=== PATIENT | female | born 1985 | race Caucasian/White ===

== ENCOUNTER → 2018-04-14 16:03 | Outpatient (CLI) | payer BC, SELFPAY ==
[2018-04-14 17:37] LABS: hCG Titer Quant., Serum < 1 mIU/mL (<9 non-preg)
== END ==
PROVIDERS: Visit Provider Obstetrics & Gynecology
DX: O20.0 Threatened abortion (principal)
CPT/HCPCS: 36415; 84702

== ENCOUNTER → 2018-12-27 12:03 | Outpatient (CLI) | payer BC, SELFPAY ==
[2018-12-21 14:41] VITALS: BMI 32.1
[2018-12-23 09:48] VITALS: BMI 31.8
--- NOTE | 2018-12-27 12:09 | US_ITS ---
STUDY: ULTRASOUND OF THE FEMALE PELVIS - COMPLETE REASON FOR EXAM: Female, 33 years old. Irregular menses. LMP: 12/14/2018 TECHNIQUE: Transabdominal and Transvaginal TECHNICAL QUALITY: Adequate. COMPARISON: None. FINDINGS: The uterus is anteverted and is in a midline position. The uterus measures 7.6 x 4.9 x 4.2 cm. Normal uterine cervix. The endometrium measures 7.4 mm in thickness, and is hyperechoic. There is no demonstrated endometrial mass. There is no demonstrated myometrial mass. I.U.D. - The patient does not have an I.U.D. The right ovary is visualized. The right ovary measures 2.1 x 2.3 x 3.0 cm. There is no right ovarian cyst or ovarian mass. There is no visualized right adnexal mass or complex lesion. There is normal arterial and normal venous vascularity. The left ovary is visualized. The left ovary measures 3.2 x 2.5 x 2.2 cm. There is no left ovarian cyst or ovarian mass. There is no visualized left adnexal mass or complex lesion. There is normal arterial and normal venous vascularity. There is no fluid in the cul-de-sac. The pre void volume of the bladder was 486 ml. US/Transvaginal Non- IMPRESSION: Normal female pelvis. Electronically Signed: Noe Muñoz MD at 23:49 EST , Service support ,
--- NOTE | 2018-12-27 12:09 | US_ITS ---
STUDY: ULTRASOUND OF THE FEMALE PELVIS - COMPLETE REASON FOR EXAM: Female, 33 years old. Irregular menses. LMP: 12/14/2018 TECHNIQUE: Transabdominal and Transvaginal TECHNICAL QUALITY: Adequate. COMPARISON: None. FINDINGS: The uterus is anteverted and is in a midline position. The uterus measures 7.6 x 4.9 x 4.2 cm. Normal uterine cervix. The endometrium measures 7.4 mm in thickness, and is hyperechoic. There is no demonstrated endometrial mass. There is no demonstrated myometrial mass. I.U.D. - The patient does not have an I.U.D. The right ovary is visualized. The right ovary measures 2.1 x 2.3 x 3.0 cm. There is no right ovarian cyst or ovarian mass. There is no visualized right adnexal mass or complex lesion. There is normal arterial and normal venous vascularity. The left ovary is visualized. The left ovary measures 3.2 x 2.5 x 2.2 cm. There is no left ovarian cyst or ovarian mass. There is no visualized left adnexal mass or complex lesion. There is normal arterial and normal venous vascularity. There is no fluid in the cul-de-sac. The pre void volume of the bladder was 486 ml. US/Pelvic (Non ) IMPRESSION: Normal female pelvis. Electronically Signed: Noe Muñoz MD at 23:49 EST , Service support ,
== END ==
PROVIDERS: Family Provider Internal Medicine; PCP Internal Medicine; Referring Provider Nurse Practitioner Women's Health; Visit Provider Nurse Practitioner Women's Health
DX: N92.6 Irregular menstruation, unspecified (principal)
CPT/HCPCS: 76830; 76856; 93976

== ENCOUNTER → 2018-12-29 07:50 | Outpatient (CLI) | payer BC, SELFPAY ==
[2018-12-23 09:48] VITALS: BMI 31.8
--- NOTE | 2018-12-29 08:18 | EKG12_ITS ---
Test Reason : CP Blood Pressure : / mmHG Vent. Rate : 079 BPM Atrial Rate : 079 BPM P-R Int : 166 ms QRS Dur : 074 ms QT Int : 352 ms P-R-T Axes : 027 053 046 degrees QTc Int : 403 ms Normal sinus rhythm Normal ECG Confirmed by CARMEL MCKEON MD ([id number]), metropolitan editor JARVIS DURON ([id number]) on 12/30/2018 8:14:37 AM Referred By: Mark Caldwell Confirmed By:CARMEL MCKEON MD
[2018-12-29 09:12] LABS: Hematocrit 42.8 % (37-47); Hemoglobin 13.6 g/dl (12.0-15.0); Mean Corp Hgb Conc 31.8 g/gl (32-36); Mean Corpuscular Hgb 28.7 pg (27.0-32.0); Mean Corpuscular Volume 90.3 fL (81-99); Mean Platelet Vol. 9.9 fl (6.2-12.0); Platelet Count 250 K/mm3 (150-450); RBC Distribution Width SD 42.7 fl (35.1-43.9); Red Blood Count 4.74 M/mm3 (4.2-5.4)
[2018-12-29 09:13] LABS: Scan Indicated on CBC? Y/N NO
[2018-12-29 09:47] LABS: BUN 10 mg/dL (7-18); Creatinine, Serum 0.69 mg/dL (0.55-1.02); EST Glomerular Filtration Rate 103 mL/min (>60); Glucose 87 mg/dL (74-106)
[2018-12-29 09:48] LABS: ALB/GLOB Ratio 1.1 RATIO (0.9-2.4); AST(SGOT) 16 U/L (15-37); Alanine Aminotransfer ALT/SGPT 26 U/L (13-56); Albumin, Serum 3.9 g/dL (3.2-5.0); Alkaline Phosphatase 78 U/L (45-117); Anion Gap 8 (5-15); BUN/Creat Ratio 14.4 RATIO (10-20); Calcium,Total 8.7 mg/dL (8.5-10.1); Chloride 110 mmol/L (98-107); Cholesterol 156 mg/dL (200); Est Glom Filt Rate - Afr Amer 124 mL/min (>60); Globulin 3.7 g/dL (2.2-4.2); High Density Lipoprotein 38 mg/dL; Potassium 4.1 mmol/L (3.5-5.1); Protein, Total 7.6 g/dL (6.4-8.2); Sodium Level 141 mmol/L (136-145); Thyroid Stim Hormone (TSH) 0.87 uIU/mL (0.358-3.74); Triglycerides 185 mg/dL; Very Low Density Lipoprotein 37 mg/dL (5-40)
== END ==
PROVIDERS: Family Provider Internal Medicine; PCP Internal Medicine; Referring Provider Nurse Practitioner Family; Visit Provider Nurse Practitioner Family
DX: R07.9 Chest pain, unspecified (principal); R03.0 Elevated blood-pressure reading, without diagnosis of hypertension; E66.9 Obesity, unspecified
CPT/HCPCS: 36415; 80053; 80061; 84443; 85027; 93005

== ENCOUNTER 2018-12-31 22:20 | Emergency (ER) | payer BC, SELFPAY ==
[2018-12-23 09:48] VITALS: BMI 31.8
[2018-12-31 22:21] VITALS: BP 152/102; PULSE 107; RESP 18; TEMP 37.1; O2SAT 100; BMI 33.3
--- NOTE | 2018-12-31 22:29 | ED.RN ---
CALLED FOR EKG PER RN REQUEST, PULLED OLD EKGS FOR
--- NOTE | 2018-12-31 22:31 | EKG12_ITS ---
Test Reason : PALPITATIONS Blood Pressure : / mmHG Vent. Rate : 079 BPM Atrial Rate : 079 BPM P-R Int : 164 ms QRS Dur : 072 ms QT Int : 340 ms P-R-T Axes : 018 032 049 degrees QTc Int : 389 ms Normal sinus rhythm Normal ECG Confirmed by MIKE MIDDLETON, CARMEL ([id number]), electronic news gathering editor JARVIS DURON ([id number]) on 01/03/2019 10:18:29 AM Referred By: BECKY Confirmed By:CARMEL MCKEON MD
--- NOTE | 2018-12-31 22:50 | RAD_ITS ---
STUDY: X-RAY CHEST REASON FOR EXAM: Female, 33 years old. Palpitations and chest pain TECHNIQUE: PA and lateral views of the chest. COMPARISON: None. FINDINGS: development coordinator leads are present. The lungs are clear and expanded. There is no demonstrated pleural abnormality. Normal size heart. Normal mediastinum and jose. Normal visualized pulmonary arteries. Normal visualized aortic arch and descending thoracic aorta. Normal visualized thoracic spine. Normal visualized ribs, clavicles, and shoulders. There is no demonstrated abnormality of the visualized soft tissue structures of the upper abdomen. RAD/Chest PA and Lateral IMPRESSION: Normal x-ray examination of the chest. Electronically Signed: Arie Howard MD at 23:30 EST , Service support ,
[2018-12-31 22:57] LABS: Absolute Lymphocyte Count 3.92 X10^3/ul (0.83-4.51); Basophil# 0.04 X10^3/uL; Basophil% 0.5 % (0-1); Eosinophil# 0.26 X10^3/uL; Hematocrit 43.4 % (37-47); Hemoglobin 14.2 g/dl (12.0-15.0); Lymphocyte # 3.92 X10^3/ul (4.0); Lymphocyte % 45.7 % (19-41); Mean Corp Hgb Conc 32.7 g/gl (32-36); Mean Corpuscular Hgb 29.3 pg (27.0-32.0); Mean Corpuscular Volume 89.5 fL (81-99); Mean Platelet Vol. 9.7 fl (6.2-12.0); Monocyte# 0.32 X10^3/uL; Monocyte% 3.7 % (0-10); Neutrophil % 46.7 % (47-70); Platelet Count 272 K/mm3 (150-450); RBC Distribution Width SD 42.4 fl (35.1-43.9); Red Blood Count 4.85 M/mm3 (4.2-5.4); White Blood Count 8.6 K/mm3 (4.4-11.0)
[2018-12-31 22:58] LABS: POSITIVE COUNT NO; POSITIVE DIFFERENTIAL NO; POSITIVE MORPHOLOGY NO
[2018-12-31 23:06] LABS: D-Dimer Quantitative (DVT/PE) < 0.27 FEU/ug/m (0.27-0.49)
[2018-12-31 23:25] LABS: Anion Gap 9 (5-15); BUN 16 mg/dL (7-18); BUN/Creat Ratio 20.9 RATIO (10-20); Calcium,Total 9.3 mg/dL (8.5-10.1); Chloride 109 mmol/L (98-107); Creatinine, Serum 0.77 mg/dL (0.55-1.02); EST Glomerular Filtration Rate 92 mL/min (>60); Est Glom Filt Rate - Afr Amer 111 mL/min (>60); Estimated Creatinine Clearance 77.68 ml/min; Glucose 106 mg/dL (74-106); Potassium 3.7 mmol/L (3.5-5.1); Sodium Level 143 mmol/L (136-145); Thyroid Stim Hormone (TSH) 2.73 uIU/mL (0.358-3.74)
--- NOTE | 2018-12-31 23:40 | ED.VISSUMM ---
- ER Visit Summary Date of Service: 12/31/18 Chief Complaint: Palpitations History of Present Illness: The patient is a 33 F who presents with palpitations. It began tonight about an hour ago. It lasted 15-20 minutes. She states she felt like her heart was racing. She also states that she cannot catch her breath all the way. She complains of intermittent chest pain shortness of breath for about 2 months. The pain is shooting. It lasts just a second. No recent surgery hospitalization travel. No leg pain or edema. No history of DVT or pulmonary embolism. No known coagulopathies. No medical history such as diabetes hypertension hyperlipidemia. She is a non-smoker. Currently her symptoms have resolved and she does not have palpitations currently. Physical Examination: Heart rate 107 initial blood pressure 152/102 vitals otherwise normal Moist mucous membranes Heart regular rate and rhythm Lungs are clear Abdomen soft Alert Test Results: EKG shows sinus rhythm at a rate of 79. CBC BMP troponin all normal. TSH normal. D-dimer negative. Chest x-ray normal Emergency Department Course and Treatment: Workup as above normal. Patient was recently started on progesterone. Palpitations may be attributable to this. Patient advised to follow-up with her physicians. She understands to return for new or worsening symptoms. She was discharged. Treatment Plan: [] Disposition: Discharge Impression: Palpitations This note was generated with [employer] dictation software. It may contain incorrect words, spelling, and punctuation that were not noted in review of the chart prior to signing ED Disposition - Plan for ED Patient: Referrals: Nicole Sidhu MD [Primary Care Provider] -
--- NOTE | 2018-12-31 23:44 | ED.DEP ---
ED Disposition - Plan for ED Patient: Instructions: ED Palpitations Referrals: Nicole Sidhu MD [Primary Care Provider] -
[2018-12-31 23:53] VITALS: BP 143/86; PULSE 85; RESP 18; O2SAT 95
== END 2018-12-31 23:53 | disposition home or self-care (01) ==
LOC: ED 22:50
PROVIDERS: Emergency Provider Emergency Medicine; Family Provider Internal Medicine; PCP Internal Medicine
DX: R00.2 Palpitations (principal); Z79.899 Other long term (current) drug therapy
CPT/HCPCS: 71046; 80048; 84443; 84484; 85025; 85379; 93005; 99284

== ENCOUNTER → 2019-01-07 07:54 | Outpatient (CLI) | payer BC, SELFPAY ==
[2018-12-31 22:21] VITALS: BMI 33.3
[2019-01-07 10:46] LABS: Estradiol 23.6 pg/mL; Follicle Stimulating Hormone 4.5 mIU/mL; Prolactin 22.7 ng/mL; Thyroid Stim Hormone (TSH) 1.31 uIU/mL (0.358-3.74)
== END ==
PROVIDERS: Family Provider Internal Medicine; PCP Internal Medicine; Referring Provider Nurse Practitioner Women's Health; Visit Provider Nurse Practitioner Women's Health
DX: E28.2 Polycystic ovarian syndrome (principal)
CPT/HCPCS: 36415; 82670; 83001; 84146; 84443

== ENCOUNTER → 2019-01-24 16:01 | Outpatient (CLI) | payer BC, SELFPAY ==
[2018-12-31 22:21] VITALS: BMI 33.3
[2019-01-24 17:01] LABS: Progesterone Level 6.23 ng/mL (See Comment)
== END ==
PROVIDERS: Family Provider Internal Medicine; PCP Internal Medicine; Referring Provider Nurse Practitioner Women's Health; Visit Provider Nurse Practitioner Women's Health
DX: E28.2 Polycystic ovarian syndrome (principal)
CPT/HCPCS: 36415; 84144

== ENCOUNTER → 2019-05-17 | Outpatient (CLI) | payer BC, SELFPAY ==
[2019-05-17 13:27] VITALS: BMI 32.1
[2019-05-24 12:54] LABS: HPV APTIMA, High Risk Negative (Negative)
== END | disposition home or self-care (01) ==
LOC: LABSPEC 16:24
PROVIDERS: Family Provider Internal Medicine; PCP Internal Medicine; Referring Provider Obstetrics & Gynecology; Visit Provider Obstetrics & Gynecology
DX: O09.90 Supervision of high risk pregnancy, unspecified, unspecified trimester (principal); Z3A.00 Weeks of gestation of pregnancy not specified
CPT/HCPCS: 87086; 87088; 87624; 88175; G0145

== ENCOUNTER 2019-05-28 07:54 | Emergency (ER) | payer BC, SELFPAY ==
[2019-05-17 13:27] VITALS: BMI 32.1
[2019-05-28 07:55] VITALS: BP 147/95; PULSE 100; RESP 18; TEMP 36.4; O2SAT 98; BMI 31.1
[2019-05-28] MEDS: Acetaminophen 500 MG Tablet 1000 MG PO (08:19)
[2019-05-28 08:55] LABS: Color, Urine Yellow (Yellow); Glucose, Dipstick Normal (Normal); Leukocyte Esterase-Dipstick 500 /ul (Negative); Nitrite-Dipstick Negative (Negative); Occult Blood-Urine 250 /ul (Negative); Protein-Dipstick 30 mg/dl (Negative); Urine Bilirubin Dipstick Negative (Negative); Urine Clarity Sl. Cloudy (Clear); Urine Urobilinogen Normal (Normal)
--- NOTE | 2019-05-28 08:57 | ED.DCSUM_ITS ---
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 she is followed by [facility] indicates her current is uncomplicated she is had ultrasounds that showed 9 weeks IUP she is had no fever no cough no abdominal pain no vaginal bleeding or discharge, she has had a pain to the low lumbar back that began for unspecified reasons, she has no history of UTI kidney stones no trauma and again her is uncomplicated she is taking nothing for the pain she is concerned that this represents some type of miscarriage process and is asking that an ultrasound be done but has the above history Past Medical History - Allergies and Home Meds Allergies/Adverse Reactions: Allergies No Known Allergies Allergy (Verified 05/28/19 07:57) Primary Care Physician: Nicole Sidhu MD [Primary Care Provider] - Past Medical History: - Smoking Status: Never smoker Review of Systems ROS: - As above General: Denies: Chills, Fever, Sweats Eyes: Denies: Visual changes - bilaterally, Diplopia ENT: Denies: Rhinorrhea, Sore throat Cardiovascular: Denies: Chest pain, Palpitations Respiratory: Denies: Dyspnea, Cough, Dyspnea on exertion Gastrointestinal: Denies: Abdominal pain, Nausea, Vomiting, Diarrhea, Melena, Hematochezia Genitourinary: Denies: Dysuria, Hematuria, Frequency Musculoskeletal: Reports: Back pain. Denies: Extremity Pain Skin: Denies: Rash, Wounds Neurological: Denies: Headache, Weakness, Numbness Physical Exam Vital Signs/Narrative: Vital Signs Temp Pulse Resp BP Pulse Ox 05/28/19 07:55 97.6 F L 100 18 147/95 H 98 General: Well nourished, Well developed, No Acute Distress Head: Normocephalic, Atraumatic Eyes: Perrl, EOMI ENT: Moist mucous membranes, No rhinorrhea Neck: Supple, Nontender Cardiovascular: Regular rate, Regular rhythm, No murmurs Respiratory: No distress, CTA bilaterally, Chest nontender Abdomen: Soft, Nontender, Nondistended, Normal bowel sounds Back: Nontender, Normal Inspection, - - Patient complains of pain to the low lumbar back there is no lesions here there is very little discomfort to palpation she has full range of motion she is able to stand walk by difficulty no radiation to her lower extremities no other complaints Extremities: Nontender, No edema Skin: Normal color, No rash Neurological: Alert, Oriented x3, Cranial nerves II-XII grossly intact, Normal Strength, Normal Sensation Psychological: Normal affect, Normal Mood Diagnostic/Tx/Re-eval - Medical Decision Making I had a long conversation with the patient I explained that there is no indication at this point time of the exact etiology of the back pain, there is no indication this represents a miscarriage and further should miscarriage be the occult process causing the above the ultrasound would not help prevent her manage that condition and a vaginal probe ultrasound might actually exacerbate the situation, and at this stage her appropriate management is bed rest pelvic rest and follow-up with her [facility]PER[facility] team she agreed to provide urine sample and we will provide her Tylenol for the pain She is UA shows signs of UTI, see those reports, urine culture sent, she started on Keflex, I explained all of the above to her I explained to have her follow-up with her OBs in the day or 2 continue the Keflex Tylenol for pain I explained her that at this time the UTI is likely explanation for the low back pain she has again the ultrasound would not usually be helpful she is to have pelvic rest take the antibiotic follow-up with her obese tomorrow or the next day and return for change in symptoms she will have her OB check her urine culture result Final impression urinary tract infection about 9 weeks ED Disposition - Plan for ED Patient: Diagnosis: , UTI (urinary tract infection) during Instructions: Understanding Urinary Tract Infections (UTIs) Prescriptions: Cephalexin [Keflex] 500 mg PO 4X/DAY #30 cap Prescription Printed Referrals: Nicole Sidhu MD [Primary Care Provider] -
[2019-05-28 09:03] LABS: Bacteria 2+ /hpf (None Seen); Ketone-Dipstick 150 mg/dl (Negative); Mucous, Urine RARE /hpf (<or=2+); Red Blood Cells-Urine 5-10 SEEN /hpf (0-5); Squamous Epithelial Cells - UA 0-5 SEEN /hpf (5-10); White Blood Cells 5-10 SEEN /hpf (0-5)
[2019-05-28 09:44] VITALS: BP 117/76; PULSE 72; RESP 16
[2019-05-28] MEDS: Cephalexin 250 MG Capsule 500 MG PO (09:46)
== END 2019-05-28 09:47 | disposition home or self-care (01) ==
LOC: ED 08:42
PROVIDERS: Emergency Provider Emergency Medicine; Family Provider Internal Medicine; PCP Internal Medicine
DX: O23.41 Unspecified infection of urinary tract in pregnancy, first trimester (principal); Z3A.09 9 weeks gestation of pregnancy; O20.0 Threatened abortion
CPT/HCPCS: 76817; 81001; 84702; 87086; 87088; 99283

== ENCOUNTER 2019-05-28 13:25 | Emergency (ER) | payer BC, SELFPAY ==
[2019-05-28 07:55] VITALS: BMI 31.1
[2019-05-28 13:27] VITALS: BP 146/87; PULSE 81; RESP 18; TEMP 36.6; O2SAT 98; BMI 30.9
--- NOTE | 2019-05-28 13:39 | US_ITS ---
STUDY: FIRST TRIMESTER OBSTETRICAL ULTRASOUND REASON FOR EXAM: Female, 33 years old. Bleeding in early . LMP: 03/23/2019 TECHNIQUE: Transvaginal real-time exam with carl scale image documentation. TECHNICAL QUALITY: Adequate. PRIOR ULTRASOUND: None. FINDINGS: There is visualization of a single gestational sac in a normal intrauterine position. The mean sac diameter (MSD) measures 4.84 cm, indicating an estimated gestational age (EGA) of 9 weeks, 3 days. The gestational sac shape is within normal limits. There is no demonstrated yolk sac. The placenta is not visualized secondary to early gestational age. There is visualization of a live embryo. The crown-rump length (CRL) measures 2.59 cm, indicating an estimated gestational age (EGA) of 9 weeks, 3 days. There is demonstrated cardiac activity with a heart rate of 157 bpm. The estimated gestation age (EGA) by LMP is 10 weeks, 1 days. The estimated date of delivery (ROGER) by LMP is 12/23/2019. The estimated gestation age (EGA) by US is 9 weeks, 3 days. The estimated date of delivery (ROGER) by US is 12/28/2019. The uterus measures 9.1 x 7.6 x 6.5 cm. There is no demonstrated uterine fibroid. The cervix is closed. The right ovary is not visualized. There is no visualized right adnexal mass or complex lesion. The left ovary is not visualized. There is no visualized left adnexal mass or complex lesion. There is no fluid in the cul de sac. US/Transvaginal w/Preg US IMPRESSION: Single living intrauterine fetus of 9 weeks and 3 days with an ROGER of 12/28/2019. No demonstrated intrauterine abnormality. The ovaries are not identified. No adnexal masses or free fluid. Electronically Signed: Anisa Duque MD at 16:10 EDT , Service support ,
--- NOTE | 2019-05-28 13:42 | ED.VISSUMM ---
- ER Visit Summary Date of Service: 05/28/19 Chief Complaint: 9 weeks and vaginal bleeding History of Present Illness: The patient is a 33 F 4P1 Ab2 with is being miscarriages. Patient is approximately 9 weeks . He is under the care of Dr. Bowman. He was seen earlier today she was having lower back pain. Was diagnosed with a UTI and started on Keflex. She was not having any vaginal bleeding at that time. This afternoon she started to have vaginal bleeding. Possibly may have passed tissue. She has had 2 prior miscarriages. Both of those were when she had in vitro fertilization. Her blood type is O+ and she is never needed RhoGam in the past consistent with her blood type. Physical Examination: Young female no acute distress vital signs stable afebrile. HEENT exam unremarkable. Lungs clear to auscultation. Heart regular rhythm no murmur. Abdomen soft and nontender. Normal bowel sounds no peritoneal signs. No abdominal pain. Extremities moves all 4 no edema. Neurologically she is awake and alert with no focal deficits. Test Results: Quantitative hCG 107,091 Pelvic ultrasound shows a single live intrauterine with a due date of 12/28/2019. Emergency Department Course and Treatment: Patient having either miscarriage or threatened miscarriage. Pelvic exam will be done along with an ultrasound and a quant. We already know that she is blood type O+. Treatment Plan: [] Disposition: Discharge Impression: 9 weeks vaginal bleeding Threatened miscarriage This note was generated with [employer]ation software. It may contain incorrect words, spelling, and punctuation that were not noted in review of the chart prior to signing ED Disposition - Plan for ED Patient: Referrals: Nicole Sidhu MD [Primary Care Provider] -
--- NOTE | 2019-05-28 16:40 | ED.DEP ---
ED Disposition - Plan for ED Patient: Disposition: Home or Assisted Living Instructions: POSSIBLE MISCARRIAGE (Threatened ) Referrals: Shara Jenkins MD [STAFF PHYSICIAN] - As soon as possible Additional Instructions: Follow-up with your ENDODONTICS DENTIST's office tomorrow. Heavy lifting. No sex. Return to ER if much heavier bleeding.
[2019-05-28 16:50] VITALS: PULSE 92; RESP 18; O2SAT 99
== END 2019-05-28 16:52 | disposition home or self-care (01) ==
PROVIDERS: Emergency Provider Emergency Medicine; Family Provider Internal Medicine; PCP Internal Medicine
DX: O20.0 Threatened abortion (principal)
CPT/HCPCS: 76817; 84702; 99283

== ENCOUNTER → 2019-06-02 | Outpatient (CLI) | payer BC, SELFPAY ==
[2019-05-30 08:16] VITALS: BMI 30.9
[2019-06-02 09:40] LABS: Absolute Lymphocyte Count 1.17 X10^3/uL (0.83-4.51); Absolute Neutrophil Count 4.5 X10^3/uL (2.0-7.7); Basophil# 0.01 X10^3/uL; Basophil% 0.2 % (0-1); Eosinophil# 0.07 X10^3/uL; Eosinophils% 1.1 % (0-5); Hematocrit 39.2 % (37-47); Lymphocyte # 1.17 X10^3/ul (4.0); Mean Corp Hgb Conc 33.2 g/dL (32-36); Mean Corpuscular Hgb 29.4 pg (27.0-32.0); Mean Corpuscular Volume 88.7 fL (81-99); Mean Platelet Vol. 9.9 fl (6.2-12.0); Monocyte# 0.33 X10^3/uL; Monocyte% 5.3 % (0-10); NRBC Flagged by Analyzer 0 % (0-5); Neutrophil # 4.54 X10^3/uL (2.7-7.7); Neutrophil % 73.6 % (47-70); Platelet Count 256 K/mm3 (150-450); RBC Distribution Width CV 11.9 % (11.6-14.6); RBC Distribution Width SD 38.7 fl (35.1-43.9); Red Blood Count 4.42 M/mm3 (4.2-5.4); White Blood Count 6.2 K/mm3 (4.4-11.0)
[2019-06-02 09:45] LABS: Glucose Challenge Gest 1H 50g 111 mg/dL (70-140)
[2019-06-02 10:54] LABS: HIV - WCH Non-Reactive (Nonreactive); Hepatitis B Surface Antigen Non-Reactive (Nonreactive); Rubella IgG 109.4 IU/mL
[2019-06-09 01:32] LABS: Rapid Plasmin Reagin (RPR) NONREACTIVE (NONREACTIVE)
== END | disposition home or self-care (01) ==
LOC: PAVLAB 08:55
PROVIDERS: Family Provider Internal Medicine; PCP Internal Medicine; Referring Provider Obstetrics & Gynecology; Visit Provider Obstetrics & Gynecology
DX: O09.521 Supervision of elderly multigravida, first trimester (principal); O09.90 Supervision of high risk pregnancy, unspecified, unspecified trimester; O99.211 Obesity complicating pregnancy, first trimester; Z3A.00 Weeks of gestation of pregnancy not specified
CPT/HCPCS: 82950; 85025; 86592; 86703; 86762; 86850; 86900; 87340

== ENCOUNTER → 2019-06-30 | Outpatient (CLI) | payer BC, SELFPAY ==
[2019-06-28 15:56] VITALS: BMI 30.9
--- NOTE | 2019-06-30 10:01 | EKG12_ITS ---
Test Reason : HTN Blood Pressure : / mmHG Vent. Rate : 078 BPM Atrial Rate : 078 BPM P-R Int : 176 ms QRS Dur : 074 ms QT Int : 356 ms P-R-T Axes : 026 055 029 degrees QTc Int : 405 ms Normal sinus rhythm Normal ECG Confirmed by MELY MIDDLETON, ELDON ([id number]), editor magazine CHONG TERRAZAS ([id number]) on 07/03/2019 1:32:12 PM Referred By: Nicole Sidhu Confirmed By:URIEL BOONE MD
== END | disposition home or self-care (01) ==
LOC: CVS 10:00
PROVIDERS: Family Provider Internal Medicine; PCP Internal Medicine; Referring Provider Internal Medicine; Visit Provider Internal Medicine
DX: I10 Essential (primary) hypertension (principal)
CPT/HCPCS: 93005

== ENCOUNTER 2019-07-06 13:54 | Emergency (ER) | payer BC, SELFPAY ==
[2019-07-05 16:25] VITALS: BMI 30.9
[2019-07-06 13:54] VITALS: BP 154/93; PULSE 86; RESP 18; TEMP 28.8; O2SAT 99; BMI 31.1
--- NOTE | 2019-07-06 14:19 | EKG12_ITS ---
Test Reason : CP Blood Pressure : / mmHG Vent. Rate : 085 BPM Atrial Rate : 085 BPM P-R Int : 156 ms QRS Dur : 076 ms QT Int : 350 ms P-R-T Axes : 057 060 039 degrees QTc Int : 416 ms Normal sinus rhythm Normal ECG Confirmed by MELY MIDDLETON, ELDON ([id number]), news assignment editor LISA BORJAS ([id number]) on 07/10/2019 11:24:12 A M Referred By: FARZANA Confirmed By:URIEL BOONE MD
--- NOTE | 2019-07-06 14:20 | ED.VIS.CHEST ---
History of Present Illness Chief Complaint: Shortness of Breath Informant: Patient Onset: Yesterday Timing: Intermittent Quality: Sharp Location: Left Chest Current Severity: Moderate Maximum Severity: Moderate Worsened By: Breathing. Not Worsened By: Movement of Arm, Movement of Torso, Palpation Relieved By: Nothing Associated Symptoms: Dyspnea, Palpitations. Negative for: Nausea, Vomiting, Diaphoresis, Cough, Fever Past Medical History - Allergies and Home Meds Allergies/Adverse Reactions: Allergies No Known Allergies Allergy (Verified 06/28/19 13:30) Primary Care Physician: Nicole Sidhu MD [Primary Care Provider] - Smoking Status: Never smoker Review of Systems General: Denies: Chills, Fever, Sweats Eyes: Denies: Visual changes - bilaterally, Diplopia ENT: Denies: Rhinorrhea, Sore throat Cardiovascular: Reports: Chest pain, Palpitations Respiratory: Reports: Dyspnea. Denies: Cough, Dyspnea on exertion Gastrointestinal: Denies: Abdominal pain, Nausea, Vomiting, Diarrhea, Melena, Hematochezia Genitourinary: Denies: Dysuria, Hematuria, Frequency Musculoskeletal: Denies: Back pain, Swelling, Extremity Pain Skin: Denies: Rash, Wounds Neurological: Denies: Headache, Weakness, Numbness Physical Exam Vital Signs/Narrative: Vital Signs Temp Pulse Resp BP Pulse Ox 07/06/19 13:54 84 F L 86 18 154/93 H 99 Inital Vital Signs reviewed: Yes General: Well nourished, Well developed, No Acute Distress Head: Normocephalic, Atraumatic Eyes: Perrl, EOMI ENT: Moist mucous membranes, No rhinorrhea Neck: Supple, Nontender, No JVD Cardiovascular: Regular rate, Regular rhythm, No murmurs, Normal S1, Normal S2. Negative for: Tachycardia Respiratory: No distress, CTA bilaterally, Chest nontender Abdomen: Soft, Nontender, Nondistended, Normal bowel sounds Back: Nontender, Normal Inspection. Negative for: CVA tenderness Extremities: Nontender, No edema. Negative for: Calf Tenderness Skin: Normal color, No rash, No Trauma Neurological: Alert, Oriented x3, Cranial nerves II-XII grossly intact, Normal Strength, Normal Sensation Psychological: Normal affect, Normal Mood Diagnostic/Tx/Re-eval Impressions Chest X-Ray 07/06/19 15:00 IMPRESSION: Normal x-ray examination of the chest. Electronically Signed: Hiren Pearce MD at 15:32 EDT Tel [phone], Service support , 07/06/19 15:00 Chest PA and Lateral [RAD] Stat Laboratory Results 07/06/19 07/06/19 07/06/19 14:33 14:33 14:33 WBC 8.8 RBC 4.10 L Hgb 12.4 Hct 36.7 L MCV 89.5 MCH 30.2 MCHC 33.8 RDW Std Deviation 40.7 RDW Coeff of Ramonita 12.4 Plt Count 264 MPV 9.6 Immature Gran % (Auto) 0.800 Neut % (Auto) 76.6 H Lymph % (Auto) 17.3 L [place] % (Auto) 3.7 Eos % (Auto) 1.4 Baso % (Auto) 0.2 Absolute Neuts (auto) 6.8 Absolute Lymphs (auto) 1.52 Nucleated RBC % 0 D-Dimer Quant (PE/DVT) 0.36 Sodium 137 Potassium 3.7 Chloride 107 Carbon Dioxide 24.0 Anion Gap 6 BUN 11 Creatinine 0.62 Estim Creat Clear Calc 101.12 Est GFR (MDRD) Af Amer 140 Est GFR (MDRD) Non-Af 116 BUN/Creatinine Ratio 17.7 Glucose 90 Calcium 9.7 Troponin I < 0.015 - Rhythm Strip Rhythm Strip: Sinus Rhythm Rate: 85 Ectopy: None - EKG Initial EKG Interpretation: Sinus Rhythm, No Acute Injury Pattern - normal ekg. no S1Q3T3. - Medical Decision Making D-dimer is negative, therefore CT angiography of the chest is not necessary since this rules out PE especially in a patient. I did obtain a chest x-ray with abdominal shielding, it was negative as well. Labs are negative including troponin. She is not tachycardic or hypoxic and I feel comfortable letting her go home with close outpatient follow-up. I went back to reevaluate her when I was discussing this with her, and she has no more chest discomfort right now. It is possible this was esophageal in etiology, I advised trying some Mylanta if she gets it again to see if that helps, and to follow-up. It is also possible that high progesterone levels are contributing to or causing her dyspnea. Additionally, patient was saying she was having some palpitations with some of these episodes of dyspnea but not all of them. She was also having palpitations before she was . She is not had a Holter monitor but did have an EKG that was unremarkable as hers is today. She may need to follow-up for a Holter monitor as well, as dysrhythmias or ectopy could be contributing to any or all of the symptoms. Discussed all this with her and she is comfortable with following up. ED Disposition - Plan for ED Patient: Disposition: Home or Assisted Living Diagnosis: Dyspnea, Pleuritic chest pain, First trimester Instructions: ED Dyspnea, Palpitations Referrals: Nicole Sidhu MD [Primary Care Provider] - 3-5 Days Shara Jenkins MD [STAFF PHYSICIAN] - 3-5 Days if not improving
[2019-07-06 14:21] VITALS: O2SAT 98
[2019-07-06 14:42] LABS: Absolute Lymphocyte Count 1.52 X10^3/uL (0.83-4.51); Absolute Neutrophil Count 6.8 X10^3/uL (2.0-7.7); Basophil# 0.02 X10^3/uL; Basophil% 0.2 % (0-1); Eosinophil# 0.12 X10^3/uL; Eosinophils% 1.4 % (0-5); Hematocrit 36.7 % (37-47); Hemoglobin 12.4 g/dL (12.0-15.0); Lymphocyte # 1.52 X10^3/ul (4.0); Lymphocyte % 17.3 % (19-41); Mean Corp Hgb Conc 33.8 g/dL (32-36); Mean Corpuscular Hgb 30.2 pg (27.0-32.0); Mean Corpuscular Volume 89.5 fL (81-99); Mean Platelet Vol. 9.6 fl (6.2-12.0); Monocyte# 0.33 X10^3/uL; Monocyte% 3.7 % (0-10); NRBC Flagged by Analyzer 0 % (0-5); Neutrophil # 6.75 X10^3/uL (2.7-7.7); Neutrophil % 76.6 % (47-70); Platelet Count 264 K/mm3 (150-450); RBC Distribution Width CV 12.4 % (11.6-14.6); RBC Distribution Width SD 40.7 fl (35.1-43.9); White Blood Count 8.8 K/mm3 (4.4-11.0)
[2019-07-06 14:55] LABS: Anion Gap 6 (5-15); BUN 11 mg/dL (7-18); BUN/Creat Ratio 17.7 RATIO (10-20); Calcium,Total 9.7 mg/dL (8.5-10.1); Chloride 107 mmol/L (98-107); Creatinine, Serum 0.62 mg/dL (0.55-1.02); D-Dimer Quantitative (DVT/PE) 0.36 FEU/ug/m (0.27-0.49); EST Glomerular Filtration Rate 116 mL/min (>60); Est Glom Filt Rate - Afr Amer 140 mL/min (>60); Estimated Creatinine Clearance 101.12 ml/min; Glucose 90 mg/dL (74-106); Potassium 3.7 mmol/L (3.5-5.1); Sodium Level 137 mmol/L (136-145)
--- NOTE | 2019-07-06 15:00 | RAD_ITS ---
STUDY: X-RAY CHEST REASON FOR EXAM: Female, 33 years old. Shortness of breath TECHNIQUE: Single AP portable view of the chest. COMPARISON: None. FINDINGS: The lungs are clear and expanded. There is no demonstrated pleural abnormality. Normal size heart. Normal mediastinum and jose. Normal visualized pulmonary arteries. Normal visualized aortic arch and descending thoracic aorta. Normal visualized thoracic spine. Normal visualized ribs, clavicles, and shoulders. There is no demonstrated abnormality of the visualized soft tissue structures of the upper abdomen. RAD/Chest PA and Lateral IMPRESSION: Normal x-ray examination of the chest. Electronically Signed: Hiren Pearce MD at 15:32 EDT Tel [phone], Service support ,
[2019-07-06 16:17] VITALS: BP 129/78; PULSE 83; RESP 18; O2SAT 97
[2019-07-06 16:35] VITALS: BP 126/74; PULSE 83; RESP 15; O2SAT 97
== END 2019-07-06 16:36 | disposition home or self-care (01) ==
PROVIDERS: Emergency Provider Emergency Medicine; Family Provider Internal Medicine; PCP Internal Medicine
DX: O99.511 Diseases of the respiratory system complicating pregnancy, first trimester (principal); R06.09 Other forms of dyspnea; R07.81 Pleurodynia; Z3A.00 Weeks of gestation of pregnancy not specified
CPT/HCPCS: 71046; 80048; 84484; 85025; 85379; 93005; 99284

== ENCOUNTER → 2019-10-09 10:06 | Outpatient (CLI) | payer BC, SELFPAY ==
[2019-10-04 13:48] VITALS: BMI 34.2
[2019-10-09 11:24] LABS: Absolute Lymphocyte Count 1.56 X10^3/uL (0.83-4.51); Absolute Neutrophil Count 6.5 X10^3/uL (2.0-7.7); Basophil# 0.03 X10^3/uL; Basophil% 0.3 % (0-1); Eosinophil# 0.11 X10^3/uL; Eosinophils% 1.2 % (0-5); Hematocrit 32.9 % (37-47); Hemoglobin 10.9 g/dL (12.0-15.0); Lymphocyte # 1.56 X10^3/ul (4.0); Lymphocyte % 17.4 % (19-41); Mean Corp Hgb Conc 33.1 g/dL (32-36); Mean Corpuscular Hgb 29.9 pg (27.0-32.0); Mean Corpuscular Volume 90.4 fL (81-99); Monocyte# 0.37 X10^3/uL; Monocyte% 4.1 % (0-10); NRBC Flagged by Analyzer 0 % (0-5); Neutrophil # 6.52 X10^3/uL (2.7-7.7); Neutrophil % 72.8 % (47-70); Platelet Count 185 K/mm3 (150-450); RBC Distribution Width CV 13.1 % (11.6-14.6); RBC Distribution Width SD 43.3 fl (35.1-43.9); Red Blood Count 3.64 M/mm3 (4.2-5.4)
[2019-10-09 11:35] LABS: Glucose Challenge Gest 1H 50g 118 mg/dL (70-140)
== END ==
PROVIDERS: Family Provider Internal Medicine; PCP Internal Medicine; Referring Provider Nurse Practitioner Women's Health; Visit Provider Nurse Practitioner Women's Health
DX: O09.90 Supervision of high risk pregnancy, unspecified, unspecified trimester (principal)
CPT/HCPCS: 36415; 82950; 85025

== ENCOUNTER → 2019-10-16 15:53 | Outpatient (CLI) | payer BC, SELFPAY ==
[2019-10-16 14:07] VITALS: BMI 34.2
[2019-10-16 21:36] LABS: Chlamydia Trachomatis by PCR Negative (Negative); Neisserai gonorrhoeae by PCR Negative (Negative); Probe Check PASS; Sample Adequacy Control PASS; Specimen Processing Control PASS
== END ==
PROVIDERS: Family Provider Internal Medicine; PCP Internal Medicine; Referring Provider Nurse Practitioner Women's Health; Visit Provider Nurse Practitioner Women's Health
DX: Z34.90 Encounter for supervision of normal pregnancy, unspecified, unspecified trimester (principal)
CPT/HCPCS: 87491; 87591

== ENCOUNTER → 2019-10-20 12:12 | Outpatient (CLI) | payer BC, SELFPAY ==
[2019-10-16 14:07] VITALS: BMI 34.2
--- NOTE | 2019-10-20 12:17 | US_ITS ---
STUDY: SECOND AND THIRD TRIMESTER OBSTETRICAL ULTRASOUND - LIMITED REASON FOR EXAM: Female, 34 years old evaluate growth. LMP: Unknown. PRIOR ULTRASOUND: None. TECHNIQUE: Transabdominal TECHNICAL QUALITY: 05/28/2019. FINDINGS: There is a single intrauterine fetus. The fetus is in a cephalic presentation. There is demonstrated cardiac activity with a heart rate of 145 bpm. There is increased amniotic fluid volume consistent with polyhydramnios. The largest amniotic fluid pocket measures 8.7 cm. The amniotic fluid index (BERTO) is 30.9 cm. The placenta is posterior in location and is not low lying. There are Grade 1 placental changes. The cervix measures 3.8 cm cm in length. The cervix is) BIOMETRY: BPD: 8.07 cm: 32 weeks, 2 days HC: 28.66 cm: 31 weeks, 3 days AC: 28.5 cm: 32 weeks, 3 days FL: 5.31 cm: 28 weeks, 1 days Age by LMP: 30 weeks, 1 days. ROGER by LMP: 12/28/2019. ROGER by prior US: 12/28/2019. age by current US: 31 weeks, 0 days. ROGER by current US: 12/22/2019. Estimated weight: 1704 grams, +/- 252 grams, 66 percentile. US/OB Limited With Biometrics IMPRESSION: Single intrauterine with ultrasound age of 31 weeks and 0 days and estimated date of delivery of 12/22/2019. Vertex presentation. Posterior placenta with no evidence of previa. Normal cardiac activity. Polyhydramnios as described above. Electronically Signed: Skylar Zaldivar MD at 7:22 EST , Service support ,
== END ==
PROVIDERS: Family Provider Internal Medicine; PCP Internal Medicine; Referring Provider Nurse Practitioner Women's Health; Visit Provider Nurse Practitioner Women's Health
DX: O36.60X0 Maternal care for excessive fetal growth, unspecified trimester, not applicable or unspecified (principal); Z3A.00 Weeks of gestation of pregnancy not specified
CPT/HCPCS: 76816

== ENCOUNTER → 2019-10-25 08:53 | Outpatient (CLI) | payer BC, SELFPAY ==
[2019-10-16 14:07] VITALS: BMI 34.2
[2019-10-25 09:30] LABS: Hemoglobin A1c 5.2 % (4.2-6.3)
== END ==
PROVIDERS: Family Provider Internal Medicine; PCP Internal Medicine; Referring Provider Obstetrics & Gynecology; Visit Provider Obstetrics & Gynecology
DX: Z34.90 Encounter for supervision of normal pregnancy, unspecified, unspecified trimester (principal)
CPT/HCPCS: 36415; 83036

== ENCOUNTER → 2019-11-20 12:56 | Outpatient (CLI) | payer BC, SELFPAY ==
[2019-11-20 10:51] VITALS: BMI 35.7
--- NOTE | 2019-11-20 12:58 | US_ITS ---
STUDY: OBSTETRICAL ULTRASOUND - BIOPHYSICAL PROFILE REASON FOR EXAM: Female, 34 years old NON REACTIVE NST LMP: March 23, 2019. PRIOR ULTRASOUND: Comparison is made with prior examination dated October 20, 2019. TECHNIQUE: Transabdominal TECHNICAL QUALITY: Adequate. FINDINGS: There is a single intrauterine fetus. The fetus is in a cephalic presentation. There is demonstrated cardiac activity with a heart rate of 142 bpm. There is increased amniotic fluid consistent with polyhydramnios. The largest amniotic fluid pocket measures 7.9 cm x 11.5 cm. The amniotic fluid index (BERTO) is 26 cm. The placenta is fundal and posterior There are Grade 1 placental changes. Age by LMP: 34 weeks, 4 days. ROGER by LMP: December 28, 2019. age by prior US: 35 weeks, 3 days. ROGER by prior US: December 22, 2019. BIOPHYSICAL PROFILE: Breathing Movements (FBM): 2 Gross Body Movements (GBM): 2 Tone (FT): 2 Amniotic Fluid Volume (AFV): 2 TOTAL SCORE: 8 / 8 US/Biophysical Profile IMPRESSION: Normal biophysical profile of 06/22. Polyhydramnios. Electronically Signed: Jorge L Wagner, at 14:38 EST , Service support ,
== END ==
PROVIDERS: Family Provider Internal Medicine; PCP Internal Medicine; Referring Provider Obstetrics & Gynecology; Visit Provider Obstetrics & Gynecology
DX: O28.8 Other abnormal findings on antenatal screening of mother (principal); Z3A.00 Weeks of gestation of pregnancy not specified
CPT/HCPCS: 76818

== ENCOUNTER → 2019-12-07 15:08 | Outpatient (CLI) | payer BC, SELFPAY ==
[2019-12-06 10:48] VITALS: BMI 35.7
[2019-12-07 15:22] LABS: Absolute Lymphocyte Count 1.83 X10^3/uL (0.83-4.51); Absolute Neutrophil Count 5.9 X10^3/uL (2.0-7.7); Basophil# 0.04 X10^3/uL; Basophil% 0.5 % (0-1); Eosinophils% 1.2 % (0-5); Hematocrit 36.5 % (37-47); Hemoglobin 11.8 g/dL (12.0-15.0); Lymphocyte # 1.83 X10^3/ul (4.0); Lymphocyte % 21.3 % (19-41); Mean Corp Hgb Conc 32.3 g/dL (32-36); Mean Corpuscular Hgb 29.1 pg (27.0-32.0); Mean Corpuscular Volume 89.9 fL (81-99); Mean Platelet Vol. 9.8 fl (6.2-12.0); Monocyte# 0.39 X10^3/uL; Monocyte% 4.5 % (0-10); NRBC Flagged by Analyzer 0 % (0-5); Neutrophil # 5.88 X10^3/uL (2.7-7.7); Neutrophil % 68.5 % (47-70); Platelet Count 166 K/mm3 (150-450); RBC Distribution Width CV 13.3 % (11.6-14.6); RBC Distribution Width SD 43.9 fl (35.1-43.9); Red Blood Count 4.06 M/mm3 (4.2-5.4); White Blood Count 8.6 K/mm3 (4.4-11.0)
== END ==
PROVIDERS: PCP Internal Medicine; Referring Provider Obstetrics & Gynecology; Visit Provider Obstetrics & Gynecology
DX: O99.012 Anemia complicating pregnancy, second trimester (principal); D64.9 Anemia, unspecified; Z3A.00 Weeks of gestation of pregnancy not specified
CPT/HCPCS: 36415; 85025

== ENCOUNTER → 2019-12-13 11:25 | Outpatient (CLI) | payer BC, SELFPAY ==
[2019-11-13 13:10] VITALS: BMI 35.7
[2019-12-13 11:16] VITALS: BMI 35.7
== END ==
PROVIDERS: PCP Internal Medicine; Referring Provider Nurse Practitioner Women's Health; Visit Provider Nurse Practitioner Women's Health
DX: Z34.93 Encounter for supervision of normal pregnancy, unspecified, third trimester (principal); Z3A.36 36 weeks gestation of pregnancy
CPT/HCPCS: 87077; 87081; 87186

== ENCOUNTER 2019-12-22 09:25 | Inpatient (IN) | payer BC, SELFPAY ==
[2019-10-04 13:48] VITALS: BMI 34.2
[2019-12-20 10:23] VITALS: BMI 35.7
[2019-12-22] VITALS (22 sets, daily range): BP systolic 107–140; BP diastolic 57–80; PULSE 76–107; RESP 16–18; TEMP 36.2–37; O2SAT 93–100; BMI 38.7
[2019-12-22] MEDS: Lactated Ringers 1,000 ML 999 ML IV (09:45)
[2019-12-22 10:00] LABS: Absolute Lymphocyte Count 1.57 X10^3/uL (0.83-4.51); Absolute Neutrophil Count 6.2 X10^3/uL (2.0-7.7); Basophil# 0.02 X10^3/uL; Basophil% 0.2 % (0-1); Eosinophil# 0.09 X10^3/uL; Eosinophils% 1.1 % (0-5); Hematocrit 35.6 % (37-47); Hemoglobin 11.8 g/dL (12.0-15.0); Lymphocyte # 1.57 X10^3/ul (4.0); Lymphocyte % 18.6 % (19-41); Mean Corp Hgb Conc 33.1 g/dL (32-36); Mean Corpuscular Hgb 29.4 pg (27.0-32.0); Mean Corpuscular Volume 88.8 fL (81-99); Monocyte# 0.38 X10^3/uL; Monocyte% 4.5 % (0-10); NRBC Flagged by Analyzer 0 % (0-5); Neutrophil # 6.17 X10^3/uL (2.7-7.7); Neutrophil % 73.1 % (47-70); Platelet Count 162 K/mm3 (150-450); RBC Distribution Width CV 13.5 % (11.6-14.6); Red Blood Count 4.01 M/mm3 (4.2-5.4); White Blood Count 8.4 K/mm3 (4.4-11.0)
[2019-12-22] MEDS: Lactated Ringers 1,000 ML 150 ML IV (11:08)
[2019-12-22] MEDS: Sodium Citrate/Citric Acid 30 ML UDC PO (12:10)
[2019-12-22] MEDS: Cefazolin 2 GM in 0.9% Normal Saline 100 ML IV (12:30)
--- NOTE | 2019-12-22 12:48 | HP.PCM_ITS ---
- Problem List (1) AMA (advanced maternal age) multigravida 35+ Status: Acute Qualifiers: Comment: growth US at 36 weeks (2) Advanced maternal age (AMA) in Status: Acute Comment: NIPT screening. US at 36 weeks or growth (3) Anemia affecting Status: Acute Qualifiers: Comment: FE added- repeat cbc at 36weeks (4) H/O section Status: Acute (5) Large for dates affecting management of mother Status: Acute Qualifiers: Comment: growth US (6) Palpitations Status: Acute (7) Polyhydramnios affecting in third trimester Status: Acute Comment: mfm consult for evaluation. nl 1 hr gct and 5.2 HgA1C. plan weekly NSTs after 32 weeks. Growth US q4wk. deliver at 39 (8) Positive GBS test Status: Acute Comment: ATB in labor (9) Status: Acute Qualifiers: Comment: (10) Supervision of high risk , antepartum Status: Acute Comment: PRR (HepBsAg, GC/Chlam) PC Lesly ROGER 12/28/2019, boy, Spouse: ABHILASH (11) Obesity (BMI 30.0-34.9) Status: Chronic (12) Polycystic ovaries Status: Chronic Comment: 2011- confirmed with US History and Physical Date of Admission: 12/22/19 Intake Vital Signs 12/20/19 BMI 35.7 12/20/19 Height 5 ft 2 in 12/20/19 Weight: 206 lb 12/20/19 BMI 37.6 12/20/19 BP 124/82 H Intake Visit Reasons: 39 WK OB Chief Complaint: est ob Edging Machine Feeder Required: No Is patient in pain?: No Allergies No Known Allergies Allergy (Verified 12/20/19 10:22) Medications vit 47-iron fum 27 mg iron-folate no1 1 mg-dha 300 mg capsule 1 cap PO DAILY cap 05/17/19 [History Confirmed 12/20/19] labetalol 100 mg tablet See Rx Instructions .ROUTE .COMPLEX #90 tab 11/09/19 [Rx Confirmed 12/20/19] Last Menstral Period: 03/23/19 Zika: Zika virus screening: Negative : No PFSH PFSH Medical History Polycystic ovaries (Chronic) Heart murmur (Resolved) High blood pressure (Resolved) Social History (Updated 12/20/19 @ 10:52 by Shara Jenkins MD) Smoking Status: Never smoker alcohol intake: current alcohol intake frequency: a few times a week details: social substance use type: does not use caffeine: Yes what type of physical activity do you participate in: walking, weight training, additional details: Cardio frequency: 3-4 times per week seatbelt use: always do you feel safe at home: Yes additional social history: - [employer] Patient is a stay at home mom Pregancy History 4 Elective abortions Hx Para 1 Spontaneous abortions 2 Hx # Term Pregnancies Ectopic pregnancies Hx # Pregnancies Multiple births # of living children 1 Past Pregnancies Del. Date Name GA/Weeks Outcome Route Bth Weight Infant Gen Labor Lgth Anesthesia Del Locatn Provider FOB Unknown 2016 Lesly 40 live - full term 7lbs 12oz Female spinal [place] Delivery Date: On 05/17/19 @ 12:49 Leni Hicks Failure to progress HPI 39 WK OB: Details: BETSY GOMEZ is a 34 year old who presents for routine OB visit. OB Visit ROGER Calculator Estimated Delivery Date Method Current WG Current Estimate 12/28/19 LMP (Certain) 38w 6d Other Estimates 01/01/20 Ultrasound #1 38w 2d Expected Delivery Route/Plan plan RLTCSand plan bilateral salpingectomy Labor Preferences- labor support person: ABHILASH pain management options preferred: epidural cut cord/dad catch: : yes PP control planned: bilateral salpinectomy discussed possible routes of delivery and associated risks: [] special requests: [] Specific Issue/Plans flu vaccine: given tdap vaccine: given rhogam: na LARC form signed: yes movement and labor precautions reviewed. Problem list reviewed and updated with the most current plan of care details and appropriate orders placed. Relevant counseling for the gestational age provided. Continue routine care and follow up unless otherwise noted in visit notes/problem list details Initial Weight: 172 lb Date EGA Weight BP Urine Prot Glucose FHR FuHt Pres Dilation Effaced St Visit Note 05/17/19 7w 6d 05/30/19 9w 5d 170 lb 2 oz (-1 lb 14 oz) 124/84 Negative Negative 160 some vb over the weekend, no cramping. less now. viable IUP seen on US no abnormalities. will get NOB blood drawn this week and NIPT screening. d eclines carrier 06/16/19 12w 1d 173 lb 2 oz (+1 lb 2 oz) 140/86 Negative Negative 150 no vb cramping 06/26/19 13w 4d 173 lb 4 oz (+1 lb 4 oz) 116/68 Negative Negative 158 0 work in [employer] last 2 days, none today. Cx closed. No blood in vault. 07/12/19 15w 6d 175 lb (+3 lb) 116/78 Negative Negative 150 no vb doing well. was having palpitations and started on labetalol low dose by pcp for this 08/11/19 20w 1d 180 lb (+8 lb) 128/80 Negative Negative 140 20 no vb lof 09/08/19 24w 1d 187 lb (+15 lb) 122/82 Negative Negative 145 no vb lof good fm 10/04/19 27w 6d 190 lb 6 oz (+18 lb 6 oz) 123/76 Negative Negative 138 28 Wishes to schedule repeat CS. Considering BTO. Good Fm. NO VB, LOF 10/16/19 29w 4d 195 lb (+23 lb) 130/78 Negative Negative 147 31 NO VB, LOF.Good FM. Growth US 10/30/19 31w 4d 195 lb 9 oz (+23 lb 9 oz) 110/80 Negative Negative 145 40 no vb lof good fm no regular ctx, discussed polyhdramnios, mfm consult today. feels some pelvic pressure and discomfort especially at the end of a workday. 11/09/19 33w 0d 197 lb 8 oz (+25 lb 8 oz) 126/80 Negative Negative 155 40 NO VB, LOF. Reactive NST. Needs growth US with MFM q4wk. No CTX 11/13/19 33w 4d 201 lb 3 oz (+29 lb 3 oz) 130/72 Negative Negative 145 Sm- no vb lof good fm no regular ctx saw mfm recommend 39 weeks delivery, weekly testing 11/20/19 34w 4d 200 lb 8 oz (+28 lb 8 oz) 129/85 Negative Negative 11/27/19 35w 4d 201 lb 6 oz (+29 lb 6 oz) 120/78 Negative Negative 140 SM- no vb lof good fm no regular ctx us done today 12/06/19 36w 6d 203 lb (+31 lb) 140 SM- no vb lof good fm no regular ctx 12/13/19 37w 6d 205 lb (+33 lb) Trace Negative 12/20/19 38w 6d 206 lb (+34 lb) 124/82 Trace Negative 140 SM- no vb lof good fm no regular ctx Notes Visit Date: 12/20/19 ??No visit notes to display Visit Date: 12/13/19 ??No visit notes to display Visit Date: 12/06/19 ??No visit notes to display Visit Date: 11/27/19 ??No visit notes to display Visit Date: 11/20/19 ??No visit notes to display Visit Date: 11/13/19 ??No visit notes to display Visit Date: 11/09/19 ??No visit notes to display Visit Date: 10/30/19 ??no vb lof good fm no regular ctx, discussed polyhdramnios, mfm consult today. feels some pelvic pressure and discomfort especially at the end of a workday. ??Shara Jenkins MD on 10/30/19 Visit Date: 10/16/19 ??NO VB, LOF.Good FM. Growth US ??CHRISSY Seals on 10/16/19 Visit Date: 10/04/19 ??Wishes to schedule repeat CS. Considering BTO. Good Fm. NO VB, LOF ??CHRISSY Seals on 10/04/19 Visit Date: 09/08/19 ??no vb lof good fm ??Shara Jenkins MD on 09/15/19 Visit Date: 08/11/19 ??no vb lof ??Shara Jenkins MD on 08/11/19 Visit Date: 07/12/19 ??no vb doing well. was having palpitations and started on labetalol low dose by pcp for this ??Shara Jenkins MD on 07/18/19 Visit Date: 06/26/19 ??work in [employer] last 2 days, none today. Cx closed. No blood in vault. ??CHRISSY Seals on 06/26/19 Visit Date: 06/16/19 ??no vb cramping ??Shara Jenkins MD on 06/16/19 Visit Date: 05/30/19 ??some vb over the weekend, no cramping. less now. viable IUP seen on US no abnormalities. will get NOB blood drawn this week and NIPT screening. d eclines carrier ??Shara Jenkins MD on 05/30/19 Visit Date: 05/17/19 ??No visit notes to display ACOG First Trimester First Trimester: Second Trimester Second Trimester: Signs and Symptoms of Labor, Selecting a care provider, Reproductive Life Planning, Care Planning, Tobacco Cessation, Depression/Anxiety and Intimate Partner Violence Third Trimester Third Trimester: Pain Management Plans, Labor support person(s), Immediate Larc, Movement Monitoring and Feeding Yes ; discussed Trial of Labor after Counseling or discussed Circumcision preference Diagnostics Diagnostics Diagnostics Hgb 11.8 g/dL (12.0-15.0) L 12/07/19 Hct 36.5 % (37-47) L 12/07/19 Details: HIV: Urine Culture: Sequential Screen: NIPT Screen: ROS Const Reports system reviewed and no additional complaints, except as docu Card Reports system reviewed and no additional complaints, except as docu Resp Reports system reviewed and no additional complaints, except as docu GI Reports system reviewed and no additional complaints, except as docu, Reports nausea Reports system reviewed and no additional complaints, except as docu Musc Reports system reviewed and no additional complaints, except as docu Exam Const General: cooperative, healthy appearing, comfortable, anxious HENVT Head: normal to inspection Nose: external nose normal Face and sinus: normal facial exam Neck Neck: normal visual inspection, full ROM, no lymphadenopathy Thyroid: thyroid normal Chest Chest palpation & inspection: normal inspection of the chest Resp Effort & Inspection: normal respiratory effort GI Inspection: normal to inspection Palpation: soft, other (gravid uterus) Other: infant vertex and appropriate size for gestational age Other: Cervical Exam: Extrem General: pedal edema Office Procedures OB NST Non-Stress Test Indications for Monitoring: Yes other (polyhydramnios) Heart Rate Baseline: 140 Heart Rate Variability: moderate Movement: Present Heart Rate Accelerations: Present Decelerations: Absent Contractions: Absent Impression: Yes Reactive Non-Stress Test Category 1 Results POC Urinalysis 2 Dip (Clinic) Office Urine Glucose Negative Last Edit by Betsy Best on 12/20/19 10:2 8 Office Urine Protein Trace Last Edit by Betsy Best on 12/20/19 10:28 Assessment & Plan Problems 1. Positive GBS test B95.1 2. Polyhydramnios affecting in third trimester O40.3XX0 3. Excessive growth affecting management of in second trimester, single or unspecified fetus O36.62X0 4. Anemia affecting in second trimester O99.012 5. Palpitations R00.2 6. Advanced maternal age (AMA) in 7. H/O section Z98.891 8. Polycystic ovaries E28.2 9. Multigravida of advanced maternal age in first trimester O09.521 10. 38 weeks gestation of Z3A.38 11. Supervision of high risk , antepartum O.90 12. Obesity (BMI 30.0-34.9) E66.9 plan RLTCS and BS Orders Orders: OB NST Today [id number], O40.3XX0 POC Urinalysis 2 Dip (Clinic) Today Coding Level of Care Code OB Routine Diagnoses Positive GBS test B95.1 Polyhydramnios affecting in third trimester O40.3XX0 Excessive growth affecting management of in second trimester, single or unspecified fetus O36.62X0 ??Fetus number: single or unspecified fetus ??Trimester: second trimester Anemia affecting in second trimester O99.012 ??Trimester: second trimester Palpitations R00.2 Advanced maternal age (AMA) in H/O section Z98.891 Polycystic ovaries E28.2 Multigravida of advanced maternal age in first trimester O09.521 ??Trimester: first trimester 38 weeks gestation of Z3A.38 ??Weeks of gestation: 38 weeks Supervision of high risk , antepartum O09.90 Obesity (BMI 30.0-34.9) E66.9 Additional Codes Non-Stress Test (64558)
--- NOTE | 2019-12-22 12:49 | OP.PCM_ITS ---
Problem List (1) AMA (advanced maternal age) multigravida 35+ Status: Acute Qualifiers: Comment: growth US at 36 weeks (2) Advanced maternal age (AMA) in Status: Acute Comment: NIPT screening. US at 36 weeks or growth (3) Anemia affecting Status: Acute Qualifiers: Comment: FE added- repeat cbc at 36weeks (4) H/O section Status: Acute (5) Large for dates affecting management of mother Status: Acute Qualifiers: Comment: growth US (6) Palpitations Status: Acute (7) Polyhydramnios affecting in third trimester Status: Acute Comment: mfm consult for evaluation. nl 1 hr gct and 5.2 HgA1C. plan weekly NSTs after 32 weeks. Growth US q4wk. deliver at 39 (8) Positive GBS test Status: Acute Comment: ATB in labor (9) Status: Acute Qualifiers: Comment: (10) Supervision of high risk , antepartum Status: Acute Comment: PRR (HepBsAg, GC/Chlam) PC Lesly ROGER 12/28/2019, boy, Spouse: AJ (11) Obesity (BMI 30.0-34.9) Status: Chronic (12) Polycystic ovaries Status: Chronic Comment: 2012- confirmed with US Delivery Classification: Scheduled Final ROGER: 12/29/19 Gestational age: 39 Weeks and 0 Days supervisor telephone answering service: Sherie Oliveira Type of Anesthesia:: Spinal Date of Procedure: 12/22/19 Pre-Operative Diagnosis: previous cs steriliization Post-Operative Diagnosis: same Indications for : Repeat Elective , Desires elective sterilization Description of Procedure: The patient presented for repeat . Spinal anesthesia was placed without difficulty. Mcmahan catheter was placed. The patient was placed in the dorsal supine position with leftward tilt. Patient was prepped and draped in the normal sterile fashion. Pfannenstiel skin incision was made with the scalpel and carried through to the underlying layer of fascia with the scalpel. Fascia was nicked in the midline and the incision extended laterally. The rectus bellies were dissected off superiorly and inferiorly with out complication both sharply and bluntly. The peritoneum was entered digitally. The incision was stretched and a low transverse uterine incision was made with the scalpel. The infant's head was delivered atraumatically followed by the anterior and posterior shoulders without complication the rest of the infant delivered. The cord was clamped and cut and the was handed off to awaiting nurse. The placenta was delivered spontaneously immediately following and was noted to be intact and have a three-vessel cord. The uterus was exteriorized cleared of all clots and debris, and the incision was closed in a single layer closure using #1 Monocryl. The ovaries and fallopian tubes were noted to be within normal limits. bilateral tubes removed with ligasure device without complication. The uterus was returned to the maternal abdomen and gutters were cleared of all clots and debris. The peritoneum was closed with 3-0 Monocryl in a running fashion. Gloves were changed prior to fascial closure. Fascia was closed with 0 PDS in a running fashion. Subcutaneous tissue was copiously irrigated and the skin was closed with 3-0 Monocryl in a subcuticular fashion. Mepilex dressing was applied without complication. Patient was taken to recovery in stable condition. Multi Select Codes - Urinary/Genital Urinary/Genital CPT Codes: 78047 C/S+TL, 55086 Delivery [facility]
--- NOTE | 2019-12-22 13:02 | FALS_PTH ---
PATIENT: RUBEN GOMEZ LOC: WP U#:[id number] AGE/SX: 34/F ROOM: WP004 RE12/22/[address]: Dr. Shara Jenkins MD : 1985 BED: 1 DIS: 12/24/2019 SPEC #: [id number] RECD: 12/22/19 14:10 STATUS: LUIS REAlonzo #: [id number] SAVANNA: 12/22/19 13:[address]: Shara Jenkins DEPT: SURGICAL PATHOLOGY RECD BY: Celsa Barth ENTERED: 12/25/19 12:13 SP TYPE: FALL TUBES OTHR DR: Dr. Nicole Sidhu MD Tissues: Fallopian tube Procedures: Surgery Specimen Level II HEADER OPERATION: Tubal ligation PRE-OP DIAGNOSIS: Sterilization TISSUE SUBMITTED: Fallopian tubes, suture in right fallopian tube MICROSCOPIC DIAGNOSIS Right and left fallopian tubes, salpingectomies: Two complete segments of fallopian tubes with no pathologic change. AM:shira 12/26/19 MICROSCOPIC DESCRIPTION Slides are reviewed. GROSS DESCRIPTION Received is one container labeled with the patient's name and designated bilateral fallopian tubes. The specimen consists of two fallopian tubes with an average length of 4.5 cm and has an average diameter of 0.9 cm. Both fallopian tubes have normal fimbriated ends. No mass lesions are identified. Appliance Repair Technician sections are submitted in two cassettes as follows: 1 - right fallopian tube, 2 - left fallopian tube. / AM:shira 12/25/19 TC:4 CPT: 56208 x2
[2019-12-22] MEDS: Oxytocin 30 units/NS 500 ml 30 UNITS/500 ML IV.SOLN 167 UNITS IV (13:50)
[2019-12-22] MEDS: DiphenhydrAMINE 25 MG Capsule PO (17:05)
[2019-12-22] MEDS: Lactated Ringers 1,000 ML 100 ML IV (17:43)
[2019-12-22] MEDS: 0.9% Saline Lock 10 ML Syringe IV (19:23)
[2019-12-22] MEDS: Ketorolac 30 MG/ML Syringe IV (19:23)
[2019-12-22] MEDS: Labetalol 100 MG Tablet 50 MG PO (20:55)
--- NOTE | 2019-12-22 20:58 | NURSING ---
Pt. called RN to room saying somethings when she moves her eyes she feels a little dizzy. States it is the feeling she has when her BP is high. BP cuff applied to pt's arm and BP assessed. Systolic pressure in the high 120s. Will continue to monitor.
[2019-12-23] VITALS (8 sets, daily range): BP systolic 106–134; BP diastolic 46–82; PULSE 72–95; RESP 16–18; TEMP 36.5–36.8; O2SAT 95–98
[2019-12-23] MEDS: Ketorolac 30 MG/ML Syringe IV ×3 (01:31→13:56)
[2019-12-23] MEDS: 0.9% Saline Lock 10 ML Syringe IV ×2 (01:31→20:18)
[2019-12-23] MEDS: Enoxaparin 40 MG/0.4 ML Syringe SC (01:31)
[2019-12-23 05:19] LABS: Hematocrit 32.7 % (37-47); Hemoglobin 10.8 g/dL (12.0-15.0); Mean Corpuscular Hgb 29.8 pg (27.0-32.0); Mean Corpuscular Volume 90.1 fL (81-99); Mean Platelet Vol. 9.6 fl (6.2-12.0); Platelet Count 162 K/mm3 (150-450); RBC Distribution Width CV 13.2 % (11.6-14.6); RBC Distribution Width SD 43.1 fl (35.1-43.9); Red Blood Count 3.63 M/mm3 (4.2-5.4); White Blood Count 13.1 K/mm3 (4.4-11.0)
--- NOTE | 2019-12-23 08:15 | PN.OBGYN_ITS ---
Subjective: doing well no complaints pain controlled no CP SOB N V ambulating well tolerating po lochia moderate, going well - Physical Exam Vitals/I&O's: Vital Signs Temp Pulse Resp BP Pulse Ox 97.7 F L 78 18 108/46 L 98 12/23/19 05:10 12/23/19 05:10 12/23/19 05:10 12/23/19 05:10 12/23/19 05:10 Oxygen Delivery Method Room Air Weight: 205 lb Body Mass Index (BMI) 38.7 Intake and Output for Last 24 Hours 12/21/19 12/22/19 12/23/19 23:59 23:59 23:59 Intake Total 4318.34 / 4318.34 Output Total 750 / 750 200 / 200 Balance 3568.34 / 3568.34 -200 / -200 General: Alert, Oriented x3 Laboratory Results 12/22/19 09:45: WBC 8.4, RBC 4.01 L, Hgb 11.8 L, Hct 35.6 L, MCV 88.8, MCH 29.4, MCHC 33.1, RDW Std Deviation 44.0 H, RDW Coeff of Ramonita 13.5, Plt Count 162, MPV 10.0, Immature Gran % (Auto) 2.500 H, Neut % (Auto) 73.1 H, Lymph % (Auto) 18.6 L, Rogers % (Auto) 4.5, Eos % (Auto) 1.1, Baso % (Auto) 0.2, Absolute Neuts (auto) 6.2, Absolute Lymphs (auto) 1.57, Nucleated RBC % 0 12/22/19 09:45: Blood Type O POSITIVE, Antibody Screen NEGATIVE 12/23/19 05:10: WBC 13.1 H, RBC 3.63 L, Hgb 10.8 L, Hct 32.7 L, MCV 90.1, MCH 29.8, MCHC 33.0, RDW Std Deviation 43.1, RDW Coeff of Ramonita 13.2, Plt Count 162, MPV 9.6 Current Medications Acetaminophen (Tylenol) 1,000 mg PO Q8H PRN PRN Reason: Pain Score 1-3/10 Bisacodyl (Dulcolax) 10 mg RECTAL UD PRN PRN Reason: If no BM Diphenhydramine HCl (Benadryl) 25 mg PO Q6H PRN PRN PRN Reason: ITCHING Last Admin: 12/22/19 17:05 Dose: 25 mg Documented by: Diphenhydramine HCl (Benadryl) 25 mg PO Q6H PRN PRN PRN Reason: ITCHING Stop: 12/23/19 15:15 Enoxaparin Sodium (Lovenox) 40 mg SC DAILY REPLACED BY [facility] Last Admin: 12/23/19 01:31 Dose: 40 mg Documented by: Hydrocortisone (Hytone) 1 applic TOPICAL TID PRN PRN; Protocol PRN Reason: Discomfort Lactated Ringer's () 1,000 mls @ 100 mls/hr IV .Q10H REPLACED BY [facility] Last Admin: 12/23/19 00:58 Dose: Not Given Documented by: Naloxone HCl 4 mg/ Dextrose 504 mls @ 0 mls/hr IV .Q0M PRN; Protocol PRN Reason: Respiratory depression Ketorolac Tromethamine (Toradol (Bkc)) 30 mg IV Q6H REPLACED BY [facility] Stop: 12/24/19 13:31 Last Admin: 12/23/19 01:31 Dose: 30 mg Documented by: Labetalol HCl (Trandate) 50 mg PO BID REPLACED BY [facility] Last Admin: 12/22/19 20:55 Dose: 50 mg Documented by: Methylergonovine Maleate (Methergine) 0.2 mg IM X1 PRN PRN Reason: Uterine Atony Nalbuphine HCl (Nubain) 5 mg IV Q3H PRN PRN PRN Reason: ITCHING Stop: 12/23/19 15:15 Naloxone HCl (Narcan) 0.02 mg IV Q1M PRN PRN Reason: RR <10 and pt unresponsive Naproxen (Naprosyn) 250 - 500 mg PO Q8H PRN PRN PRN Reason: Pain Score 1-3/10 Ondansetron HCl (Zofran) 4 mg IV Q4H PRN PRN PRN Reason: Nausea Oxycodone HCl (Oxyir) 5 - 10 mg PO Q4H PRN PRN PRN Reason: Pain Score 4-10/10 Multivit/Folic Acid/Iron (Prenatabs Fa) 1 tablet PO DAILY@1200 APRIL Prochlorperazine Edisylate (Compazine Iv) 10 mg IV Q6H PRN PRN PRN Reason: NAUSEA Senna/Docusate Sodium (Senokot-S, Patricia-Colace) 0 tablet PO DAILY PRN PRN Reason: Constipation Simethicone (Mylicon) 80 mg PO PCHS PRN PRN Reason: Indigestion/stomach pain Sodium Chloride () 5 - 15 ml IV UD PRN PRN Reason: SALINE FLUSH Last Admin: 12/23/19 01:31 Dose: 15 ml Documented by: Medical Necessity - Tobacco Use Smoking Status: Never smoker Assessment/Plan All Active Problems (Last Reviewed 12/20/19 @ 10:22 by Betsy Best) Positive GBS test (Acute) Polyhydramnios affecting in third trimester (Acute) Large for dates affecting management of mother (Acute) Anemia affecting (Acute) Palpitations (Acute) Advanced maternal age (AMA) in (Acute) H/O section (Acute) (Acute) Supervision of high risk , antepartum (Acute) AMA (advanced maternal age) multigravida 35+ (Acute) Accidental needlestick injury with exposure to body fluid (Resolved) Heart murmur (Resolved) High blood pressure (Resolved) White coat syndrome with diagnosis of hypertension (Resolved) s/p LTCS PPD # 1 1. routine post care 2. breast feeding- support given 3. rh positive 4. rubella immune
[2019-12-23] MEDS: Prenatal Vits Tablet 1 TABLET PO (13:19)
[2019-12-23] MEDS: Acetaminophen 500 MG Tablet 1000 MG PO (18:30)
[2019-12-23] MEDS: Senna/Docusate Sodium 1 Tablet PO (20:19)
[2019-12-23] MEDS: Labetalol 100 MG Tablet 50 MG PO (22:03)
[2019-12-23] MEDS: Naproxen 250 MG Tablet PO (23:45)
[2019-12-24 03:37] VITALS: BP 131/68; PULSE 77; RESP 18; TEMP 36.4; O2SAT 98
[2019-12-24] MEDS: oxyCODONE 5 MG Tablet PO (05:24)
[2019-12-24 08:33] VITALS: BP 132/71; PULSE 93; RESP 16; TEMP 37
--- NOTE | 2019-12-24 08:45 | DCINST_ITS ---
Discharge Diet: No Restrictions Discharge Activity: May Not Drive - for 2 weeks, May not drive while taking narcotic pain medications., May Shower, May Take a Tub Bath - in 7 days May resume sexual activity in: 4-6 weeks Lifting Restrictions: 20 pounds Additional Activity Instructions:: Nothing in the vagina for 4-6 weeks. You may return to work/school in 6 weeks. Call your doctor if your incision/area has: Continuous Slow Oozing, Sudden Increased Bleeding, Increased Pain/ Swelling, Increased Redness, Foul Smelling Discharge Call your doctor if you observe: Fever of 101 or Higher, Using more than one pad per hour - for 2 hours Suture Line Care: Avoid Pulling/Pushing, Avoid Pinching/Bending Cleanse incision/area with: Keep Dressing Clean & Dry Additional Instructions: If you experience any of the following, contact your healthcare provider. * Bleeding that soaks a pad every hour for 2 hours * Fever 100.4 or higher * Unrelieved incision or abdominal pain * Swelling, redness, discharge or bleeding from your incision or episiotomy site * Your incision begins to separate * Problems urinating (including inability to urinate or burning while urinating). * Visual changes * Severe headache * Flu-like symptoms * Pain or redness in one of both of your breasts * Pain, warmth, tenderness or swelling in your legs, especially the calf area * Frequent nausea and vomiting * Symptoms of depression or anxiety If you experience any of the following, call 911 or go to the nearest Emergency Room. * Chest pain * Problems breathing * Seizure activity * Partial or complete paralysis of a body part, slurred speech, weakness or drooping of the face, or a sudden inability to walk or hold your balance Allergies/Adverse Reactions: Allergies No Known Allergies Allergy (Verified 12/20/19 10:22) Medications to take at Discharge vit 47-iron fum 27 mg iron-folate no1 1 mg-dha 300 mg capsule 1 cap PO DAILY cap 05/17/19 Iron Chews 324 mg PO DAILY 12/22/19 Labetalol HCl See Rx Instructions .ROUTE .COMPLEX 12/22/19 Naproxen [Naprosyn] 250 - 500 mg PO Q8H PRN PRN #30 tab 12/24/19 Oxycodone HCl/Acetaminophen [Percocet 5-325] 1 - 2 tablet PO Q6H PRN PRN 7 Days #15 tablet 12/24/19 The following prescriptions were given: Naproxen [Naprosyn] 250 - 500 mg PO Q8H PRN PRN #30 tab PRN Reason: MILD PAIN Transmission Status: Pending to [facility]/pharmacy #[id number] Oxycodone HCl/Acetaminophen [Percocet 5-325] 1 - 2 tablet PO Q6H PRN PRN 7 Days #15 tablet PRN Reason: Pain Transmission Status: Sent to [facility]/pharmacy #[id number] Follow-Up: Call to make an appointment with your doctor for an incision check in 1-2 weeks. You will also need a 6 week post- follow up appointment. Test results from this visit will be discussed in further detail at your follow- up appointment, if applicable. Please Follow Up With: Shara Jenkins MD - Call to make an appointment for an incision check in 1-2 [phone] When: You will need a post- check in 6 weeks. Primary Care Physician: Nicole Sidhu MD [Primary Care Provider] -
--- NOTE | 2019-12-24 08:45 | PN.OBGYN_ITS ---
Subjective: doing well no complaints pain controlled no CP SOB N V ambulating well tolerating po lochia moderate, going well - Physical Exam Vitals/I&O's: Vital Signs Temp Pulse Resp BP Pulse Ox 98.6 F 93 16 132/71 H 98 12/24/19 08:33 12/24/19 08:33 12/24/19 08:33 12/24/19 08:33 12/24/19 03:37 Oxygen Delivery Method Room Air Weight: 205 lb Body Mass Index (BMI) 38.7 Intake and Output for Last 24 Hours 12/22/19 12/23/19 12/24/19 23:59 23:59 23:59 Intake Total 4318.34 / 4318.34 Output Total 750 / 750 800 / 800 Balance 3568.34 / 3568.34 -800 / -800 General: Alert, Oriented x3 Current Medications Acetaminophen (Tylenol) 1,000 mg PO Q8H PRN PRN Reason: Pain Score 1-3/10 Last Admin: 12/23/19 18:30 Dose: 1,000 mg Documented by: Bisacodyl (Dulcolax) 10 mg RECTAL UD PRN PRN Reason: If no BM Diphenhydramine HCl (Benadryl) 25 mg PO Q6H PRN PRN PRN Reason: ITCHING Last Admin: 12/22/19 17:05 Dose: 25 mg Documented by: Enoxaparin Sodium (Lovenox) 40 mg SC DAILY [facility] Last Admin: 12/23/19 01:31 Dose: 40 mg Documented by: Hydrocortisone (Hytone) 1 applic TOPICAL TID PRN PRN; Protocol PRN Reason: Discomfort Naloxone HCl 4 mg/ Dextrose 504 mls @ 0 mls/hr IV .Q0M PRN; Protocol PRN Reason: Respiratory depression Labetalol HCl (Trandate) 50 mg PO BID [facility] Last Admin: 12/23/19 22:03 Dose: 50 mg Documented by: Methylergonovine Maleate (Methergine) 0.2 mg IM X1 PRN PRN Reason: Uterine Atony Naloxone HCl (Narcan) 0.02 mg IV Q1M PRN PRN Reason: RR <10 and pt unresponsive Naproxen (Naprosyn) 250 - 500 mg PO Q8H PRN PRN PRN Reason: Pain Score 1-3/10 Last Admin: 12/23/19 23:45 Dose: 500 mg Documented by: Ondansetron HCl (Zofran) 4 mg IV Q4H PRN PRN PRN Reason: Nausea Oxycodone HCl (Oxyir) 5 - 10 mg PO Q4H PRN PRN PRN Reason: Pain Score 4-/10 Last Admin: 12/24/19 05:24 Dose: 10 mg Documented by: Multivit/Folic Acid/Iron (Prenatabs Fa) 1 tablet PO DAILY@1200 APRIL Last Admin: 12/23/19 13:19 Dose: 1 tablet Documented by: Prochlorperazine Edisylate (Compazine Iv) 10 mg IV Q6H PRN PRN PRN Reason: NAUSEA Senna/Docusate Sodium (Senokot-S, Patricia-Colace) 0 tablet PO DAILY PRN PRN Reason: Constipation Last Admin: 12/23/19 20:19 Dose: 1 tablet Documented by: Simethicone (Mylicon) 80 mg PO PCHS PRN PRN Reason: Indigestion/stomach pain Sodium Chloride () 5 - 15 ml IV UD PRN PRN Reason: SALINE FLUSH Last Admin: 12/23/19 20:18 Dose: 10 ml Documented by: Medical Necessity - Tobacco Use Smoking Status: Never smoker Assessment/Plan All Active Problems (Last Reviewed 12/20/19 @ 10:22 by Betsy Best) Positive GBS test (Acute) Polyhydramnios affecting in third trimester (Acute) Large for dates affecting management of mother (Acute) Anemia affecting (Acute) Palpitations (Acute) Advanced maternal age (AMA) in (Acute) H/O section (Acute) (Acute) Supervision of high risk , antepartum (Acute) AMA (advanced maternal age) multigravida 35+ (Acute) Accidental needlestick injury with exposure to body fluid (Resolved) Heart murmur (Resolved) High blood pressure (Resolved) White coat syndrome with diagnosis of hypertension (Resolved) s/p LTCS PPD # 2 1. routine post care 2. breast feeding- support given 3. rh positive 4. rubella immune
[2019-12-24 10:10] VITALS: BP 128/76
[2019-12-24] MEDS: Labetalol 100 MG Tablet 50 MG PO (10:14)
[2019-12-24] MEDS: Enoxaparin 40 MG/0.4 ML Syringe SC (10:14)
[2019-12-24] MEDS: Prenatal Vits Tablet 1 TABLET PO (12:57)
[2019-12-24 13:10] VITALS: BP 121/69; PULSE 86; RESP 16; TEMP 37.1
[2019-12-26 13:56] LABS: Pathology Specimen OB SEE PATHOLOGY REPORT
== END 2019-12-24 13:20 | disposition home or self-care (01) | DRG 785 ==
PROVIDERS: Admitting Provider Obstetrics & Gynecology; Family Provider Internal Medicine; PCP Internal Medicine; Referring Provider Obstetrics & Gynecology; Visit Provider Obstetrics & Gynecology
PROC: 10D00Z1 Extraction of Products of Conception, Low, Open Approach (ICD-10-PCS; CPT 59514; principal; 2019-12-22 11:45)
DX: O13.4 Gestational [pregnancy-induced] hypertension without significant proteinuria, complicating childbirth (principal); O99.214 Obesity complicating childbirth; E66.9 Obesity, unspecified; O99.02 Anemia complicating childbirth; D64.9 Anemia, unspecified; O40.3XX0 Polyhydramnios, third trimester, not applicable or unspecified; Z3A.39 39 weeks gestation of pregnancy; Z37.0 Single live birth
CPT/HCPCS: 85025; 85027; 86850; 86900; 86901; 88302; 99218; 99251; J7120; A4216; G0378; G0463; J2405

== ENCOUNTER → 2020-06-25 11:36 | Outpatient (CLI) | payer BC, SELFPAY ==
[2020-06-25 11:04] VITALS: BMI 38.7
[2020-06-25 15:06] LABS: Absolute Lymphocyte Count 1.99 X10^3/uL (0.83-4.51); Basophil# 0.03 X10^3/uL; Basophil% 0.5 % (0-1); Eosinophil# 0.18 X10^3/uL; Eosinophils% 2.7 % (0-5); Hematocrit 41.7 % (37-47); Hemoglobin 13.1 g/dL (12.0-15.0); Lymphocyte # 1.99 X10^3/ul (4.0); Lymphocyte % 30.2 % (19-41); Mean Corp Hgb Conc 31.4 g/dL (32-36); Mean Corpuscular Hgb 28.5 pg (27.0-32.0); Mean Corpuscular Volume 90.7 fL (81-99); Mean Platelet Vol. 10.2 fl (6.2-12.0); Monocyte# 0.35 X10^3/uL; Monocyte% 5.3 % (0-10); NRBC Flagged by Analyzer 0 % (0-5); Neutrophil % 60.5 % (47-70); Platelet Count 290 K/mm3 (150-450); RBC Distribution Width CV 11.9 % (11.6-14.6); RBC Distribution Width SD 39.5 fl (35.1-43.9); White Blood Count 6.6 K/mm3 (4.4-11.0)
[2020-06-25 15:53] LABS: ALB/GLOB Ratio 1.1 RATIO (0.9-2.4); AST(SGOT) 13 U/L (15-37); Alanine Aminotransfer ALT/SGPT 30 U/L (13-56); Albumin, Serum 4.1 g/dL (3.2-5.0); Alkaline Phosphatase 83 U/L (45-117); Anion Gap 2 (5-15); BUN 15 mg/dL (7-18); BUN/Creat Ratio 22.7 RATIO (10-20); Calcium,Total 9.7 mg/dL (8.5-10.1); Chloride 106 mmol/L (98-107); Creatinine, Serum 0.66 mg/dL (0.55-1.02); EST Glomerular Filtration Rate 108 mL/min (>60); Est Glom Filt Rate - Afr Amer 130 mL/min (>60); Globulin 3.6 g/dL (2.2-4.2); Glucose 95 mg/dL (74-106); Magnesium 2.3 mg/dL (1.6-2.6); Potassium 4.4 mmol/L (3.5-5.1); Protein, Total 7.7 g/dL (6.4-8.2); Sodium Level 140 mmol/L (136-145); T4 Free Direct 1.03 ng/dL (0.76-1.46); Thyroid Stim Hormone (TSH) 0.77 uIU/mL (0.358-3.74)
== END ==
PROVIDERS: PCP Internal Medicine; Referring Provider Nurse Practitioner Family; Visit Provider Nurse Practitioner Family
DX: R00.2 Palpitations (principal); R06.00 Dyspnea, unspecified
CPT/HCPCS: 36415; 80053; 83735; 84439; 84443; 85025

== ENCOUNTER → 2020-07-01 | Outpatient (CLI) | payer BC, SELFPAY ==
[2020-06-25 11:04] VITALS: BMI 38.7
== END | disposition home or self-care (01) ==
LOC: PSN 10:58
PROVIDERS: PCP Internal Medicine; Referring Provider Nurse Practitioner Family; Visit Provider Nurse Practitioner Family
DX: R00.2 Palpitations (principal); R06.00 Dyspnea, unspecified
CPT/HCPCS: 93225; 93226

== ENCOUNTER → 2020-08-22 | Outpatient (CLI) | payer BC, SELFPAY ==
[2020-08-22 17:02] VITALS: BMI 38.7
== END | disposition home or self-care (01) ==
LOC: LABSPEC 18:22
PROVIDERS: PCP Internal Medicine; Visit Provider Physician Assistant
DX: N39.0 Urinary tract infection, site not specified (principal)
CPT/HCPCS: 87086; 87088; 87186

== ENCOUNTER → 2021-07-09 15:08 | Outpatient (CLI) | payer OTHER, SELFPAY ==
[2021-07-09 17:01] LABS: Absolute Lymphocyte Count 2.25 X10^3/uL (0.83-4.51); Absolute Neutrophil Count 3.8 X10^3/uL (2.0-7.7); Basophil# 0.03 X10^3/uL; Basophil% 0.5 % (0-1); Eosinophil# 0.14 X10^3/uL; Eosinophils% 2.1 % (0-5); Hematocrit 38.4 % (37-47); Hemoglobin 12.1 g/dL (12.0-15.0); Lymphocyte # 2.25 X10^3/ul (0.83-4.51); Lymphocyte % 34.3 % (19-41); Mean Corp Hgb Conc 31.5 g/dL (32-36); Mean Corpuscular Hgb 29.1 pg (27.0-32.0); Mean Corpuscular Volume 92.3 fL (81-99); Mean Platelet Vol. 10.2 fl (6.2-12.0); Monocyte% 4.6 % (0-10); NRBC Flagged by Analyzer 0 % (0-5); Neutrophil # 3.81 X10^3/uL (2.7-7.7); Platelet Count 265 K/mm3 (150-450); RBC Distribution Width CV 12.3 % (11.6-14.6); RBC Distribution Width SD 41.9 fl (35.1-43.9); Red Blood Count 4.16 M/mm3 (4.2-5.4); White Blood Count 6.6 K/mm3 (4.4-11.0)
[2021-07-09 17:19] LABS: ALB/GLOB Ratio 1.2 RATIO (0.9-2.4); AST(SGOT) 16 U/L (15-37); Alanine Aminotransfer ALT/SGPT 33 U/L (13-56); Alkaline Phosphatase 80 U/L (45-117); Anion Gap 4 (5-15); BUN 13 mg/dL (7-18); BUN/Creat Ratio 19.7 RATIO (10-20); Calcium,Total 9.2 mg/dL (8.5-10.1); Chloride 103 mmol/L (98-107); Cholesterol 186 mg/dL (200); Creatinine, Serum 0.66 mg/dL (0.55-1.02); EST Glomerular Filtration Rate 107 mL/min (>60); Est Glom Filt Rate - Afr Amer 130 mL/min (>60); Globulin 3.2 g/dL (2.2-4.2); Glucose 87 mg/dL (74-106); High Density Lipoprotein 41 mg/dL; Potassium 3.8 mmol/L (3.5-5.1); Protein, Total 7.2 g/dL (6.4-8.2); Sodium Level 137 mmol/L (136-145); Triglycerides 377 mg/dL; Very Low Density Lipoprotein 75 mg/dL (5-40)
== END ==
PROVIDERS: PCP Internal Medicine; Referring Provider Internal Medicine; Visit Provider Internal Medicine
DX: I10 Essential (primary) hypertension (principal); E66.9 Obesity, unspecified
CPT/HCPCS: 36415; 80053; 80061; 85025

== ENCOUNTER → 2021-07-24 | Outpatient (CLI) | payer OTHER, SELFPAY ==
[2021-07-24 10:39] LABS: Mucous, Urine 0 SEEN /hpf (<or=2+); Red Blood Cells-Urine 0 SEEN /hpf (0-5)
[2021-07-24 10:55] LABS: Color, Urine Yellow (Yellow); Glucose, Dipstick Normal (Normal); Ketone-Dipstick Negative (Negative); Leukocyte Esterase-Dipstick 500 /ul (Negative); Nitrite-Dipstick Negative (Negative); Occult Blood-Urine 50 /ul (Negative); Protein-Dipstick Negative (Negative); Specific Gravity, Urine 1.005 (1.002-1.030); Urine Bilirubin Dipstick Negative (Negative); Urine Clarity Clear (Clear); Urine Urobilinogen Normal (Normal)
[2021-07-24 11:32] LABS: Bacteria 1+ /hpf (None Seen); Squamous Epithelial Cells - UA 0-5 SEEN /hpf (5-10); White Blood Cells 10-25 SEEN /hpf (0-5)
== END | disposition home or self-care (01) ==
LOC: LABSPEC 10:20
PROVIDERS: PCP Internal Medicine; Referring Provider Physician Assistant; Visit Provider Physician Assistant
DX: N39.0 Urinary tract infection, site not specified (principal)
CPT/HCPCS: 81001; 87086; 87088

== ENCOUNTER 2022-01-13 08:29 | Outpatient (CLI) | payer OTHER, BC, SELFPAY ==
[2022-01-13 12:41] LABS: Cholesterol 192 mg/dL (200); High Density Lipoprotein 50 mg/dL; Triglycerides 104 mg/dL; Very Low Density Lipoprotein 21 mg/dL (5-40)
== END 2022-01-13 23:59 | disposition home or self-care (01) ==
LOC: BIMLAB 08:31
PROVIDERS: PCP Internal Medicine; Referring Provider Internal Medicine; Visit Provider Internal Medicine
DX: E78.1 Pure hyperglyceridemia (principal)
CPT/HCPCS: 36415; 80061